=== PATIENT | female | born 1985 | race Caucasian/White ===

== ENCOUNTER 2019-03-22 19:14 | Inpatient (IN) | payer OTHER ==
[~2019-03-22 19:14] MED LIST: Dinoprostone* 10 MG VAG.SUPP VAGINAL ONE
[2019-03-22] MEDS ORDERED: diPHENhydraMINE PO* 50 MG PO PRN (20:45)
[2019-03-22] MEDS ORDERED: Acetaminophen TAB* 325 MG PO ONE (20:45)
--- NOTE | 2019-03-22 20:51 | HP ---
General Information - Reason for Visit IUP at 39 here for postdates ripening/induction - General Information Maternal Age: 34 Grav: 1 Para: 0 SAB: 0 IEA: 0 Estimated Due Date: 03/12/19 Determined By: LMP Gestational Age in Weeks/Days: 41-7 Maternal Blood Type and Rh: B Positive - Results this Serology/RPR Result: Non-Reactive Rubella Result: Non-Immune HBsAg Result: Negative HIV Result: Negative GBS Culture Result: Negative Past Medical History Delivery History: See Records Delivery History Comment: Primip Pertinent Past Medical History: Non-Contributory Past Medical History Comment: Childhood illness: Asthma No current health problems Pertinent Past Surgical History: See Records Past Surgical History Comment: 2013 R leg vein stripping 2007 bilateral bunionectomies Pertinent Family History: See Records Family History Comment: Father: Colon Cancer PGF: ETOH abuse PGM: Osteoporosis - Antepartal Records Antepartal Records: Reviewed, Complicated by: - postdates Review of Systems Constitutional: Comfortable CV Complaint: No Respiratory: Shortness of Breath: No Gastrointestinal: No Nausea/Vomiting, Normal Bowel Movement Genitourinary: No Dysuria, No Bleeding, No Leaking Fluid Musculoskeletal: No Complaint, No Epigastric Pain Neurological: No Headache, No Visual Changes Movement: Normal Exam Allergies/Adverse Reactions: Allergies No Known Allergies Allergy (Verified 03/22/19 20:17) BP 104/65 HR 104 T 99.1 RR 16 SpO2 97% on RA - Measurements Height: 5 ft 2 in Weight: 150 lb Weight in lbs: [phone] Body Mass Index (BMI): 27.4 Pre- Weight: 130 lb Weight Gained This : 20 lbs and 0 ozs - Exam Breast: Breast Exam Deferred CVA: No CVA Tenderness Extremities: Edema - mild bilateral 1+ pitting edema in ankles Heart: Normal Rhythm/Heart Sounds HEENT: No Significant Findings Lungs: Clear Bilaterally Rectal: Rectal Exam Deferred Reflexes: DTR 2+ Thyroid: No Thyromegaly - Abdominal Exam Abdomen Exam: Non-Tender - Ultrasound/Biophysical Profile Ultrasound Status: Not Done Targeted Exam Findings Estimated Weight: 7lbs by Leshivads Cervical Exam: Closed Effacement: Thick Station: -2 Presenting Part: Vertex Membrane Status: Intact Bleeding/Discharge: None EFM Findings - External Monitor Findings Baseline Heart Rate: 130 External Monitor Findings: Accelerations Present, No Pattern of Variable or Late Decelerations, Variability Moderate, Baseline Stable External Monitor Findings Comment: No evidence of metabolic acidemia Contractions: Irregular, Mild Assessment/Plan - Assessment IUP at 41-3/7 here for postdates ripening/induction No evidence of metabolic acidemia Hernandez Score 0, unfavorable for induction - Obstetrical Risk Factors Obstetrical Risk Factors: Post-Dates - Plan Plan: Admit - Anticipate Vaginal Delivery Plan Comment: Admit. PARQ cervical ripening with Cervidil. Pt and FOB agree to placement. Placed at 2037. Monitor per protocol. Plan removal in 12-18 hours, sooner PRN onset active labor, tachysystole or intolerance. Counseled for therapeutic rest with Tylenol & Benadryl vs. Nubain & Phenergan. Pt opts for Tylenol and Benadryl PRN. Reviewed importance of rest as part of induction process. - Date/Time of Admission Date of Admission: 03/22/19 Time of Admission: 19:38
[2019-03-22 23:36] LABS: Urine Benzodiazepine Screen None Detected (None Detect); Urine Opiates Screen None Detected (None Detect)
[2019-03-23] MEDS ORDERED: Nalbuphine* 10 MG/ML 1 ML VIAL IM ONE (02:44)
[2019-03-23] MEDS ORDERED: Promethazine INJ(RESTRICTED)* 25 MG/ML 1 ML VIAL IM ONE (02:45)
--- NOTE | 2019-03-23 02:46 | PN ---
Progress Note - Progress Note Date of Service: 03/23/19 Note: Quick Note: RN requests a one time order for IM Nubain/Phenergan as pt reportedly not resting well and may desire. Can cancel in AM PRN pt declines.
--- NOTE | 2019-03-23 07:05 | PN ---
Progress Note - Progress Note Date of Service: 03/23/19 Note: S: Pt able to sleep s/p IM Nubain/Phenergan at 0400 per RN. Starting to feel more UCs. Requests EFM to assess O: BP 104/65 HR 88 T 99.1 FHT 120bpm. Moderate variability. +Accels. No decels UCs q 2-3 min, mild-mod VE deferred. Cervidil remains in place A: IUP at 41-4/7 here for postdates ripening/induction No evidence of metabolic acidemia P: Will continue Cervidil for now. Report to Sophy Sykes CNM who will assume care at 0800
--- NOTE | 2019-03-23 09:30 | PN ---
Progress Note - Progress Note Date of Service: 03/23/19 Note: S: Still feeling a little groggy, having contractions and breathing through them. O: B/P: 99/64, P: 93, R: 18, T: 98.8 FHR: baseline 125, moderate variability, +accelerations, no decelerations UCs: q 1-4 min, moderate to palpation VE: 2/90/-2, bloody show noted. Cervidil removed A: IUP at 41 4/7 weeks Category I FHR, no evidence of metabolic acidemia Hernandez score: 8 GBS negative P: Pt to move to another room due to concerns about an electrical smell in current room Plan for low-dose pitocin for labor augmentation Reassess in 3-4 hr or sooner as indicated Anticipate SVB
[2019-03-23] MEDS ORDERED: Oxytocin in LR* 20 UNITS/1,000 ML BAG IVPB SCH ×2 (11:00→19:00)
[2019-03-23 12:31] LABS: ABS Lymphocytes 0.9 10^3/ul (1.0-4.8); ABS Monocytes 0.6 10^3/ul (0-0.8); Hematocrit 36 % (35-47); Hemoglobin 12.4 g/dL (12.0-16.0); Lymphocyte % 6.2 %; Mean Corpuscular HGB Conc 35 g/dL (31-36); Mean Corpuscular Hemoglobin 34 pg (27-31); Mean Corpuscular Volume 98 fL (80-97); Mean Platelet Volume 10.3 fL (7.4-10.4); Platelet Count 162 10^3/uL (150-450); Red Blood Count 3.65 10^6 /uL (3.70-4.87); Red Cell Distribution Width 13 % (10-15); White Blood Count 14.5 10^3/uL (3.5-10.8)
--- NOTE | 2019-03-23 13:45 | PN ---
Progress Note - Progress Note Date of Service: 03/23/19 Note: S: Resting in tub, feeling relief but feels like things have slowed a bit since she got in O: B/P: 114/70, P: 85, R: 20, T: 98.7 FHR: baseline 125, moderate variability, +accelerations, no decelerations UCs: q 1.5-4 min, moderate to palpation. Some biphasic contractions VE deferred at this time Pitocin at 4 mu/min A: IUP at 41 0/7 weeks Category I FHR, no evidence of metabolic acidemia P: Discussed position changes, ball. Reassess PRN, consider VE next time Anticipate SVB
--- NOTE | 2019-03-23 16:00 | PN ---
Progress Note - Progress Note Date of Service: 03/23/19 Note: S: Reports feeling urge to bear down with UCs O: B/P: 132/85, P: 82, R: 20, T: 98.5 FHR: baseline 135, moderate variability, +acceleration, no decelerations UCs: q2-4 min, moderate to firm VE: 8/100/-1, bulging bag of water. AROM to clear fluid Pitocin at 4 mu/min A: IUP at 41 4/7 weeks Category I FHR, no evidence of metabolic acidemia Active labor/transition P: Will await stronger urge to push Reassess PRN Anticipate SVB
[2019-03-23] MEDS ORDERED: Acetaminophen TAB* 325 MG PO PRN (18:15)
[2019-03-23] MEDS ORDERED: Dibucaine 1% 28.35 GM TUBE PR PRN (18:15)
[2019-03-23] MEDS ORDERED: Witch Hazel PAD* JAR TOPICAL PRN (18:15)
[2019-03-23] MEDS ORDERED: Glycerin ADULT SUPP PR PRN (18:15)
--- NOTE | 2019-03-23 18:24 | PROCNOTE ---
[facility] OB: Delivery Note - Delivery A Date of : 03/23/19 Time of : 17:23 [place] Sex: Female Weight at : 6 lb 9 oz Score 1 Minute: 9 Score 5 Minutes: 9 Gestational Age in Weeks and Days at Delivery: 41 Weeks and 4 Days Delivery Method: Spontaneous Vaginal Labor: Spontaneous Did Patient attempt ?: N/A, No Previous Amniotic Fluid: Clear Estimated Blood Loss: 400 Anesthesia/Analgesia: Nitrous-Labor Delivered By: Sophy Sykes - Nursery Level of Nursery: Regular/Bedside - Perineum Perineal Injury: Perineal Laceration, 2nd Degree Perineal Injury Comment: and bilateral labial lacerations, not repaired Perineal Repair: By Delivering Practioner - perineal laceration only, with 3-0 vicryl rapide - Events Delivery Events of Note: Pitocin During Labor - Additional Delivery Notes Additional Delivery Notes: at 41 4/7 weeks received cervidil followed by pitocin augmentation for postdates, nitrous oxide for relief per patient preference. AROM to clear fluid at 1523, progressed to complete and complete, began spontaneously pushing at 1612 with good maternal effort. Slow controlled delivery of infant head OA to DORENE at 1723, loose nuchal x 1 reduced at perineum. Shoulders and compound right hand followed with next push, loop of cord around 's right hand reduced and infant passed to maternal abdomen. Spontaneous cry, HR > 110. Apgars 9 and 9. Cord doubly clamped and cut by infant's father once pulsations ceased, at least 3 minutes. Placenta delivered spontaneous and briseida at 1729. Pitocin increased to 250 cc for brisk vaginal bleeding which quickly resolved, fundus firm with massage. Perineum and vagina carefully inspected, 2nd degree perineal laceration repaired under local anesthetic. Bilateral labial lacerations hemostatic and not repaired. Female , mother and baby stable at time of note. EBL = 400cc
[2019-03-23] MEDS: Ibuprofen TAB* 600 MG PO SCH (18:50)
[2019-03-23] MEDS ORDERED: Lactated Ringers 1000 ML Bag* 1,000 ML IV SCH (19:00)
[2019-03-23] MEDS ORDERED: Simethicone TAB* 80 MG TAB.CHEW PO SCH (21:00)
[2019-03-23] MEDS ORDERED: Lidocaine 1% INJ* 10 MG/ML 30 ML SDV ONE (23:07)
[2019-03-24] MEDS: Docusate CAP* 100 MG PO SCH ×3 (03:42→14:42)
[2019-03-24] MEDS: Ibuprofen TAB* 600 MG PO SCH ×4 (04:04→22:17)
[2019-03-24 06:44] LABS: ABS Eosinophils 0.1 10^3/ul (0-0.6); ABS Lymphocytes 1.8 10^3/ul (1.0-4.8); ABS Monocytes 1.1 10^3/ul (0-0.8); Eosinophil % 0.4 %; Hematocrit 30 % (35-47); Hemoglobin 10.3 g/dL (12.0-16.0); Lymphocyte % 12.8 %; Mean Corpuscular HGB Conc 34 g/dL (31-36); Mean Corpuscular Hemoglobin 34 pg (27-31); Mean Corpuscular Volume 100 fL (80-97); Mean Platelet Volume 9.9 fL (7.4-10.4); Platelet Count 148 10^3/uL (150-450); Red Blood Count 3.06 10^6 /uL (3.70-4.87); Red Cell Distribution Width 13 % (10-15); White Blood Count 13.9 10^3/uL (3.5-10.8)
[2019-03-24] MEDS ORDERED: Ferrous Gluconate TAB* 324 MG TAB PO SCH (09:00)
[2019-03-24] MEDS ORDERED: Influenza VAC *QUAD* 2019-20* 0.5 ML SYRINGE IM ONE (11:00)
[2019-03-24] MEDS ORDERED: Measles, Mumps,Rubella VACC* 0.5 ML/VIAL SUBCUT ONE (12:00)
--- NOTE | 2019-03-24 20:55 | PTEDU ---
Patient Name: GILLIAN DOCKERY GILLIAN DOCKERY selected video: Follow Me Mum: The [facility] to Successful to view on 03/24/2019 at 8:52:55 PM [id number]
[2019-03-25 08:24] VITALS: BP 110/58
[2019-03-25] MEDS: Ibuprofen TAB* 600 MG PO SCH (10:13)
[2019-03-25] MEDS: Docusate CAP* 100 MG PO SCH (10:14)
== END 2019-03-25 14:13 | disposition home or self-care (01) | DRG 807 ==
LOC: MCHOBOUT 19:14 → MCHOB 19:38
PROVIDERS: ADMIT Midwife; ATTEND Midwife
PROC: 10E0XZZ Delivery of Products of Conception, External Approach (ICD-10-PCS; principal; 2019-03-23)
PROC: 0KQM0ZZ Repair Perineum Muscle, Open Approach (ICD-10-PCS; 2019-03-23)
PROC: 3E0P7VZ Introduction of Hormone into Female Reproductive, Via Natural or Artificial Opening (ICD-10-PCS; 2019-03-23)
PROC: 10907ZC Drainage of Amniotic Fluid, Therapeutic from Products of Conception, Via Natural or Artificial Opening (ICD-10-PCS; 2019-03-23)
PROC: 3E033VJ Introduction of Other Hormone into Peripheral Vein, Percutaneous Approach (ICD-10-PCS; 2019-03-23)
PROC: 4A1HXCZ Monitoring of Products of Conception, Cardiac Rate, External Approach (ICD-10-PCS; 2019-03-23)
DX: O48.0 Post-term pregnancy (principal); Z37.0 Single live birth; O70.1 Second degree perineal laceration during delivery; O69.81X0 Labor and delivery complicated by cord around neck, without compression, not applicable or unspecified; O32.6XX0 Maternal care for compound presentation, not applicable or unspecified; O69.82X0 Labor and delivery complicated by other cord entanglement, without compression, not applicable or unspecified; Z3A.41 41 weeks gestation of pregnancy; Z23 Encounter for immunization
CPT/HCPCS: 36415; 80307; 85025; 86850; 86900; 86901; 90686; 90707; A9270-GY; J2300; J2550